=== PATIENT | female | born 1940 | race Caucasian/White ===

== ENCOUNTER → 2023-11-28 | Outpatient (CLI) | payer MEDICARE, OTHER, SELFPAY ==
--- NOTE | 2023-11-28 09:30 | PCM.PR.TP ---
General Information2 General Information Admitting Diagnosis: COPD Stage IV: severe Secondary Diagnosis: Emphysema, Hypertension, Gold Classification:: GOLD 4: Very Severe PFT FEV1:: 37 FVC:: 93 FEV1/FVC%:: 38 Personal Learning Style/Barriers Personal Learning Style:: Audio/Visual and Written Barriers to Learning: Vision impaired (wears glasses) and Hearing impaired (Bilateral hearing aids) Stage of change r/t lifestyle modifications: Contemplation Educational Classes NC: Living with Chronic Lung Disease: Initial Assessment, Breathing Retraining: Initial Assessment, Exercise: Initial Assessment and Energy Conservation: Initial Assessment Education/Goals Individual Counseling: Initial Assessment: High Blood Pressure and Sedentary Lifestyle Exercise - Initial Assessment Visit Date of Eval: 11/28/23 Session Number:: 0 (Pre-program assessment) Problem/Goals Problems: Deconditioning, No regular exercise, Knowledge deficit exercise guidelines and Knowledge deficit exercise safety Goals:: NC: 2-3/wk for 18 weeks [36 sessions] Physician Prescribed Exercise Modalities: Treadmill, NuStep and SciFit Frequency (days/week): 3 Duration (Minutes):: 30-35 Intensity: 60-80% of age predicted maximum heart rate reserve Current METSs:: 2.0 Target HR:: 100 (THRR 84-100) Resting Blood Pressure: 194/64 Minimum SpO2 with exercise: 92 (with oxygen at 3 liters) EKG Type: Sinus rhythm Plan Plan and Plan to Review:: Benefits of exercise, Core components of exercise, How to measure dyspnea level, How to monitor dyspnea level, Exercise intensity, Home exercise guidelines and Jo: 3- Nutrition/Wt Mgmt - Initial Visit Date of Eval: 11/28/23 Session Number:: 0 (pre-program assessment) Problems/Goals Goals: BMI 21-25 Weight Management Admit Height:: 5 ft 9 in Admit Weight:: 149 lb Admit BMI:: 21.9 Intervention Referral to dietitian:: Yes Will attend diet classes:: No Intervention/Plan: Instruct on ideal BMI & set weight loss goal w/patient Plan Nutrition Plan: Yes: Review BMI or WC & identify target wt & strategies for wt control and Yes: Nutrition education class: Nutrition/Wt Mgmt - 30-Day Visit Session Number:: 0 (pre-program assessment) Weight Management Height: 5 ft 9 in Weight:: 149 lb BMI: 21.9 Nutrition/Wt Mgmt - 60-Day Visit Session Number:: 0 (pre-program assessment) Weight Management Height: 5 ft 9 in Weight:: 149 lb BMI: 21.9 Nutrition/Wt Mgmt - 90-Day Visit Session Number:: 0 (pre-program assessment) Weight Management Height: 5 ft 9 in Weight:: 149 lb BMI: 21.9 Nutrition/Wt Mgmt - Final Visit Session Number:: 0 (pre-program assessment) Weight Management Height: 5 ft 9 in Weight:: 149 lb BMI: 21.9 Psychosocial - Initial Assess Visit Date of Madisonal: 11/28/23 Session Number:: 0 (pre-program assessment) Problems/Goals History of Emotional Disorders: None Psychosocial Goals: 1. Patient is free from overwhelming symtoms of depression (or anxiety Psychosocial Test Tool Used:: Pulmonary QOL and PHQ-9 Questionnaire Referred to MD for counseling:: No Referral to Behavioral Health PS - Interventions: Yes: Attend Stress Management Classes and No: Referral to Behavioral Health if PHQ-9 score >9:, No: Referral to [facility] and No: Referral to Physician if PHQ-9 if score is 5-9: Intervention/Plan: See List Interventions/Plan:: Assess stressors,coping strategies & signs of derpression on admission, Instruct/assist pt to develop coping & personal stress Mgt strategies, Instruct patient to recognize signs & symptoms of depression and Instruct patient to recog Psychosocial - 30-Day Visit Session Number:: 0 (pre-program assessment) Problems/Goals History of Emotional Disorders: None Psychosocial Goals: 1. Patient is free from overwhelming symtoms of depression (or anxiety Psychosocial Test Tool Used:: Pulmonary QOL and PHQ-9 Questionnaire Referred to MD for counseling:: No Referral to Behavioral Health PS - Interventions: Yes: Attend Stress Management Classes and No: Referral to Behavioral Health if PHQ-9 score >9:, No: Referral to [facility] and No: Referral to Physician if PHQ-9 if score is 5-9: Plan Interventions/Plan:: Assess stressors,coping strategies & signs of derpression on admission, Instruct/assist pt to develop coping & personal stress Mgt strategies, Instruct patient to recognize signs & symptoms of depression and Instruct patient to recog Psychosocial - 60-Day Visit Session Number:: 0 (pre-program assessment) Problems/Goals History of Emotional Disorders: None Psychosocial Goals: 1. Patient is free from overwhelming symtoms of depression (or anxiety Psychosocial Test Tool Used:: Pulmonary QOL and PHQ-9 Questionnaire Referred to MD for counseling:: No Referral to Behavioral Health PS - Interventions: Yes: Attend Stress Management Classes and No: Referral to Behavioral Health if PHQ-9 score >9:, No: Referral to [facility] and No: Referral to Physician if PHQ-9 if score is 5-9: Plan Interventions/Plan:: Assess stressors,coping strategies & signs of derpression on admission, Instruct/assist pt to develop coping & personal stress Mgt strategies, Instruct patient to recognize signs & symptoms of depression and Instruct patient to recog Psychosocial - 90-Day Visit Session Number:: 0 (Pre-program assessment) Problems/Goals History of Emotional Disorders: None Psychosocial Goals: 1. Patient is free from overwhelming symtoms of depression (or anxiety Psychosocial Test Tool Used:: Pulmonary QOL and PHQ-9 Questionnaire Referred to MD for counseling:: No Referral to Behavioral Health PS - Interventions: Yes: Attend Stress Management Classes and No: Referral to Behavioral Health if PHQ-9 score >9:, No: Referral to [facility] and No: Referral to Physician if PHQ-9 if score is 5-9: Plan Interventions/Plan:: Assess stressors,coping strategies & signs of derpression on admission, Instruct/assist pt to develop coping & personal stress Mgt strategies, Instruct patient to recognize signs & symptoms of depression and Instruct patient to recog Psychosocial - Final Assess Visit Session Number:: 0 (Pre-program assessment) Problems/Goals History of Emotional Disorders: None Psychosocial Goals: 1. Patient is free from overwhelming symtoms of depression (or anxiety Psychosocial Test Tool Used:: Pulmonary QOL and PHQ-9 Questionnaire Referred to MD for counseling:: No Referral to Behavioral Health PS - Interventions: Yes: Attend Stress Management Classes and No: Referral to Behavioral Health if PHQ-9 score >9:, No: Referral to [facility] and No: Referral to Physician if PHQ-9 if score is 5-9: Plan Interventions/Plan:: Assess stressors,coping strategies & signs of derpression on admission, Instruct/assist pt to develop coping & personal stress Mgt strategies, Instruct patient to recognize signs & symptoms of depression and Instruct patient to recog Oxygen & Oxygen Titration Init Visit Date of Eval: 11/28/23 Session Number:: 0 (pre-program assessment) Initial Assessment Oxygen on Admission: Continuous home use SpO2:: 92 (with oxygen at 3 liters) DME:: Analia Patient Reports:: Prod cough daily <1 Tbsp Goal Oxygen & Oxygen Tritration Goals: Effective hypoxemia control and Uses O2 as Rx'd/safely Plans Plan: Monitor SpO2 rest & with exercise and Train O2 safety & systems Reviewed prescribed medications:: Purpose, Schedule, Side effects and Importance of compliance Instruct correct technique/timing & care:: MDI, DPI and Return demo use of inhaler Bronchial Hygiene Plan: Controlled cough, Hand hygiene and Signs/symptoms to report: Oxygen & Oxygen Titration 30D Visit Session Number:: 0 (Pre-program assessment) Reassessment SpO2:: 92 (with oxygen at 3 liters) Oxygen & Oxygen Titration 60D Visit Session Number:: 0 (Pre-program assessment) Reassessment SpO2:: 92 (with oxygen at 3 liters) Oxygen & Oxygen Titration 90D Visit Session Number:: 0 (Pre-program assessment) Reassessment SpO2:: 92 (with oxygen at 3 liters) Oxygen & Oxygen Titration LAUREN Visit Session Number:: 0 (Pre-program assessment) Reassessment SpO2:: 92 (with oxygen at 3 liters) Core Components - Initial Visit Date of Eval: 11/28/23 Session Number:: 0 (Pre-program assessment) Hypertension Hypertension Diagnosis:: Hypertension ICD-10 I10 BP: 194/64 Citizen Of [place] [employer] Hypertension Guidelines Low Sodium diet: No Outcomes/Goals: Able to verbalize/achieve optimal blood pressure <130/80 and Incorporates diet changes & exercise for blood pressure control by DC Comment: White Coat Syndrome with Hypertension Tobacco - Initial Assessment Tobacco Program Goals Do you have family support?: Yes Tobacco Use: Non-smoker (1 ppd./40 years and quit smoking 1997) How many cigarettes do you smoke per day?: 0 Years Smokin Do you use smokeless tobacco?: No Smoking Cessation Referral:: No Individual Education/Counseling:: No Education Schedule Given:: Yes Gave Education Materials For:: Pulmonary Disease, Risk Factors, Breathing Techniques, Medical Compliance, Pulmonary A&P, Exacerbation Signs & Symptoms and Stress & Relaxation Exacerbation Mgmt & Airway Clearance Problems:: Hypoxemia and Poor knowledge of O2 use/safety Hypoxemia Goals:: Hypoxemia managed, Port system and Using O2 as Rx's safely Bronchial Hygiene Problems:: Ineffective secretion clearance and Respiratory infection Prevention/Management Goals: Pt demonstrates effective cough, effective secretion clearance. and Pt describes signs and symptoms of infection. Patient Reports:: Prod cough daily <1 Tbsp Plan: Monitor SpO2 rest & with exercise and Train O2 safety & systems Instruct correct technique/timing & care:: MDI, DPI and Return demo use of inhaler Bronchial Hygiene Plan: Controlled cough, Hand hygiene and Signs/symptoms to report: Medication Medication Problems: Medication non-adherence (According to her EMR patient will not use controller inhaled therapy. Only uses her albuterol HFA) and Incorrect inahled Rx use, technique Interventions/plans: Instruct on medication effects & side effects, Review medication list w/patient every two weeks and Instruct importance of taking meds as ordered & assist problem solving Medications: Yes: MDI, Yes: DPI and Yes: Spacer Reviewed prescribed medications:: Purpose, Schedule, Side effects and Importance of compliance Diabetes Diabetes:: No Referral to dietitian:: Yes Will attend diet classes:: No Heart Failure Ejection fraction %:: 54 HF Medication:: HCTZ 25 mg daily. Documenting weight daily for CHF: No Core Components - 30 DAYS Visit Session Number:: 0 (Pre-program assessment) Hypertension Hypertension Diagnosis:: Hypertension ICD-10 I10 Resting Blood Pressure:: 194/64 Citizen Of [place] [employer] Hypertension Guidelines Outcomes/Goals: Able to verbalize/achieve optimal blood pressure <130/80 and Incorporates diet changes & exercise for blood pressure control by DC Comment: White Coat Syndrome with Hypertension Tobacco - 30-Day Tobacco Program Goals Do you have family support?: Yes Tobacco Use: Non-smoker (1 ppd./40 years and quit smoking 1997) How many cigarettes do you smoke per day?: 0 Do you use smokeless tobacco?: No Smoking Cessation Referral:: No Education Schedule Given:: Yes Gave Education Materials For:: Pulmonary Disease, Risk Factors, Breathing Techniques, Medical Compliance, Pulmonary A&P, Exacerbation Signs & Symptoms and Stress & Relaxation Diabetes Diabetes:: No Heart Failure Documenting weight haritha: No Core Components - 60 DAYS Visit Session Number:: 0 (Pre-program assessment) Hypertension Hypertension Diagnosis:: Hypertension ICD-10 I10 Resting Blood Pressure:: 194/64 Citizen Of [place] [employer] Hypertension Guidelines Outcomes/Goals: Able to verbalize/achieve optimal blood pressure <130/80 and Incorporates diet changes & exercise for blood pressure control by DC Comment: White Coat Syndrome with Hypertension Tobacco - 60-Day Tobacco Program Goals Do you have family support?: Yes Tobacco Use: Non-smoker (1 ppd./40 years and quit smoking 1997) How many cigarettes do you smoke per day?: 0 Do you use smokeless tobacco?: No Smoking Cessation Referral:: No Individual Education/Counseling:: No Education Schedule Given:: Yes Gave Education Materials For:: Pulmonary Disease, Risk Factors, Breathing Techniques, Medical Compliance, Pulmonary A&P, Exacerbation Signs & Symptoms and Stress & Relaxation Diabetes Diabetes:: No Heart Failure Documenting weight haritha: No Core Components - 90 DAYS Visit Session Number:: 0 (Pre-program assessment) Hypertension Hypertension Diagnosis:: Hypertension ICD-10 I10 Resting Blood Pressure:: 194/64 Citizen Of [place] [employer] Hypertension Guidelines Outcomes/Goals: Able to verbalize/achieve optimal blood pressure <130/80 and Incorporates diet changes & exercise for blood pressure control by DC Comment: White Coat Syndrome with Hypertension Tobacco - 90-Day Tobacco Program Goals Do you have family support?: Yes Tobacco Use: Non-smoker (1 ppd./40 years and quit smoking 1997) How many cigarettes do you smoke per day?: 0 Do you use smokeless tobacco?: No Smoking Cessation Referral:: No Individual Education/Counseling:: No Education Schedule Given:: Yes Gave Education Materials For:: Pulmonary Disease, Risk Factors, Breathing Techniques, Medical Compliance, Pulmonary A&P, Exacerbation Signs & Symptoms and Stress & Relaxation Diabetes Diabetes:: No Core Components - Final Visit Session Number:: 0 (Pre-program assessment) Hypertension Hypertension Diagnosis:: Hypertension ICD-10 I10 Resting Blood Pressure:: 194/64 Citizen Of [place] [employer] Hypertension Guidelines Outcomes/Goals: Able to verbalize/achieve optimal blood pressure <130/80 and Incorporates diet changes & exercise for blood pressure control by DC Comment: White Coat Syndrome with Hypertension Tobacco - Final Tobacco Program Goals Do you have family support?: Yes Tobacco Use: Non-smoker (1 ppd./40 years and quit smoking 1997) How many cigarettes do you smoke per day?: 0 Do you use smokeless tobacco?: No Smoking Cessation Referral:: No Individual Education/Counseling:: No Education Schedule Given:: Yes Diabetes Diabetes:: No Knowledge Questionaire (BCKQ) Information Information: [place] COPD Knowledge Questionnaire (BCKQ) This questionnaire is designed to find out what you know about your lung problem. It should be completed without help form anyone else. This usually takes between 10 and 20 minutes. Your answers will help us to find out what information you need to help you to understand and manage your lung condition. Rakesh the douglas which you think is the correct answer. Nutrition Survey Nutrition Survey Instructions Scoring Instructions
--- NOTE | 2023-11-28 09:30 | PCM.PR.HP ---
History of Present Illness General Arrival date:: 11/28/23 Arrival time:: 09:31 Date of Referral:: 11/20/23 Date of Evaluation: 11/28/23 Referring Physician: Dr. Zaida Mcfadden Primary Diagnosis: COPD History of Present Pulmonary Event History of Present Illness: Has had a long period of chronic lung disease with oxygen dependence. mMRC Breathless Scale: When is the patient short of breath? Y/N Grade: Description of Breathlessness: 0 I only get breathless with strenuous exercise. 1 I get short of breath when hurrying on level ground or walking up a slight hill. 2 On level ground, I walk slower than people of the same age because of breathless, or have to stop for breath when walking at my own pace. Y 3 I stop for breath after walking 100 yards or after a few minutes on level ground. N 4 I am too breathless to leave the house or I am breathless when dressing. Respiratory Problems: Yes Retain Secretions, Fatigue, Able to Speak in Full Sentences, Anxiety, Panic, Dyspnea at Rest and Dyspnea with Activity; No Limited Range of Motion, Chest Pain, Dizziness, Hoarseness, Dyspnea Lying Down Flat or Cough with Secretions Medications Home Medications HOME OXYGEN 11/28/23 albuterol sulfate 90 mcg/actuation breath activated powder inhaler 2 inh inhalation Q4H 11/28/23 amlodipine 10 mg tablet (Norvasc) 10 mg PO DAILY 11/28/23 bumetanide 0.5 mg/2 mL injection solution mg IV 11/28/23 cholecalciferol (vitamin D3) 50 mcg (2,000 unit) capsule (Vitamin D3) 2,000 unit PO DAILY 11/28/23 hydralazine 50 mg tablet 50 mg PO TID 11/28/23 hydrochlorothiazide PO DAILY 11/28/23 umeclidinium 62.5 mcg-vilanterol 25 mcg/actuation powdr for inhalation (Anoro Ellipta) 1 inh inhalation DAILY 11/28/23 Allergies Allergies furosemide [From Lasix] Allergy (Mild, Verified 11/28/23 09:51) HIVES amlodipine Allergy (Verified 11/28/23 09:51) Shortness of breath lisinopril Adverse Reaction (Mild, Verified 11/28/23 09:51) Abd cramps/diarrhea metoprolol [From Toprol XL] Adverse Reaction (Mild, Verified 11/28/23 09:51) FATIGUE Secretions Thick:: Yes Thin:: No Amount/Day:: 1 TSP Cough:: Yes AM: Yes Sleep Disorder Evaluation Hx of Sleep Apnea: No Do you snore loudly (louder than talking or can be heard through closed doors)?: No Do you often feel tired/ fatigued/ sleepy during daytime?: Yes Has anyone observed you stop breathing during sleep?: No History of Hypertension (for STOP score): Yes STOP Results: Positive Medical Utilization Medical Devices Do you use a peak flow meter at home?: No Do you use a spacer device with your inhalers?: No Medical Utilization Number of hospital visits in the last year?: 0 Number of emergency room visits in the last year?: 0 Do you see your physician on a regular schedule?: Yes How often?: PCP 6 months, Pulmonary 3 months Advanced Directives Advanced Directives Power of Dog Pound Attendant: Yes (Son is her POA) Living Will: Yes Advance Directives Information Provided: No Advance Directives on File: No DNR Order?:: Yes Additional Comments:: Patient has a DNR with other advanced directives MOLST See MOLST form: No Past Medical History Covid-19 Screening Physicial Symptoms Fever: No Unexplained muscle aches: No Current respiratory symptoms: Yes (acute dyspnea with activities, Dyspnea) Upper respiratory infections symptoms: No Gastro-intestinal symptoms: No Svw-Gfee-[id number] symptoms: No Other Clinical Concerns Has tested positive for COVID-19 in last 30 days: No Exposure Risk Had contact w/person w/symptoms or Covid-19 (+) last 14 days: No Has High Risk Exposures ID'd by Health dept/Inf Control team: No Pertinent Comorbidities 65 years or older:: Yes Lives in Assisted Living facility:: No Has a chronic lung disease or moderate to severe asthma:: Yes Has a serious heart condition:: No Immunocompromised:: No Severely obese (Body Mass Index of 40 or higher):: No Diabetic:: No Has chronic kidney disease undergoing dialysis:: No Has liver disease:: No Medical History Past Medical History (Updated 11/28/23 @ 10:12 by Randell Ramsey, M[employer]IPLE G[employer] DEALER, EYE PHYSICIAN, BS) Adenocarcinoma of sigmoid colon C18.7 Diverticulitis K57.92 Emphysema, unspecified J43.9 Hematochezia K92.1 Hematuria R31.9 History of colon polyps Z86.010 [place] (hard of hearing) H91.90 Hypertension I10 Kidney stones N20.0 Wears glasses Z97.3 Wears hearing aid in both ears Z97.4 White coat syndrome with hypertension I10 Surgical History Past Surgical History (Updated 11/28/23 @ 10:15 by Randell Ramsey, M[employer]IP[employer] G[employer] DEALER, EYE PHYSICIAN, BS) H/O colectomy Z90.49 H/O colonoscopy Z98.890 H/O laminectomy Z98.890 Hx of appendectomy Z90.49 S/P total abdominal hysterectomy Z90.710 Current/ Previous Services Pulmonary Rehab:: No Social History Smoking History Smoking Status: Former smoker Years Smokin Packs Smoked per Day: 1 Hx Smoking Cessation Date: 01/17/98 Hx Tobacco Use: Yes Hx Smoking Exposure: No Alcohol Use Alcohol Usage: No Substance Abuse Hx Substance Use: No 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 Hobbies, Recreation, Social Activities Hobbies: Sewing, Reading, Watch TV, None and Other (antiques) Recreational Activities: I am able to engage in all my recreational activities (will engage in activities at my own pace.) and I am able to engage in most, but not all activities Functioning ADL/IADL Current Ability Current Ability: Independent: Self-Care (e.g.,grooming, dressing, & bathing) (has to rest frequently), Independent: Ambulation (slow, takes frequent rests), Independent: Transfer and Independent: Household tasks (e.g., light meal prep, laundry, shopping) Pt Functioning Prior to Problem Prior Functioning: Self-Care (e.g.,grooming, dressing, & bathing): Independent, Ambulation: Independent, Transfer: Independent and Household tasks (e.g., light meal prep, laundry, shopping): Independent Social Environment Status Marital Status: Current Living Arrangements Living Environment:: Alone Children How many children do you have?: 1 Do any of your children live nearby?: Yes Safety Do you feel safe in your surroundings?: Yes Assistance Do you need any assistance at home?: none Review of Systems Review of Systems Review of Systems Respiratory: Reports SOB at Rest, SOB upon Exertion, Appetite, Normal, Dizziness/Lightheadedness, Fatigue and Sleep, Normal; Denies Cough, Hemoptysis, Pleuritic Pain, Sputum production, Wheezing, PVD or Sexual changes Pain Is Patient Pain Free?: Yes Pain Location: none Previous experience dealing with pain?: History of lower back pain; laminectomy Risk Factor Assessment Vital Signs Temperature: 98.5 F Respiratory Rate: 20 Pulse Ox: 92 (on 3 liters) Blood Pressure: 194/64 (white coat syndrome with hypertension) Diabetes Nutrition Referral for Diabetes: No Obesity Height: 5 ft 9 in Weight:: 149 lb Weight in Pounds: 149.0 lbs Weight Source: Stated by Patient Body Mass Index (BMI): 21.9 Nutritional Referral for Obesity: No Physical Activity Physical Inactivity: None Risk Stratification Risk Guidelines: Lowest Risk: Risk Factor for Smoking, Risk Factor for Dyslipidemia, Risk Factor for Diabetes, Risk Factor for Obesity and Risk Factor for Depression and Highest Risk: Risk Factor for Hypertension and Risk Factor for Sedentary Lifestyle For Smoking Smoking Risk Guidelines For Dyslipidemia Dyslipidemia Risk Guidelines For Diabetes Mellitus Diabetes Risk Guidelines For Obesity/Overweight Obesity/Overweight Risk Guidelines For Hypertension Hypertension Risk Guidelines For Sedentary Lifestyle Sedentary Lifestyle Risk Guidelines For Depression Depression Risk Guidelines Motivation Motivation to Participate On a scale of 1 to 10, how prepared are you to commit to attending program?: 1 (Patient states she would not have regular transportation, offered hospital transportation service, denied participating) What do you see as barriers to successfully being able to complete the program?: lower back pain Are there issues you are dealing with that will interfere with completing the program?: back pain/problems, offered recumbent exercise with proper back support Do you have a spouse or signficant other, family or friends who will help support you to complete the program?: Yes
[2023-11-28 10:07] VITALS: BP 194/64; O2SAT 92; BMI 21.9
[2023-11-28 10:27] VITALS: BP 194/64; RESP 20; TEMP 36.9; O2SAT 92; BMI 21.9
== END | disposition home or self-care (01) ==
PROVIDERS: PCP Family Medicine
DX: J44.9 Chronic obstructive pulmonary disease, unspecified (principal)